=== PATIENT | male | born 1960 | race Caucasian/White ===

== ENCOUNTER 2016-10-11 10:04 | Day surgery (SDC) | payer BC, OTHER ==
[2016-10-11] MEDS ORDERED: PROPOFOL 10 MG/ML VIAL IV ONE (14:00)
[2016-10-11] MEDS ORDERED: LIDOCAINE 2% MDV (20MG/ML) 20ML VIAL IV ONE (14:00)
--- NOTE | 2016-10-13 12:43 | Operative Note ---
DATE OF SURGERY: 10/11/2016. REFERRING PHYSICIAN: Hu Decker M.D. PROCEDURE: Colonoscopy to the cecum with cold biopsy forceps polypectomy. INDICATION: Prior history of adenomatous polyps. The patient returns at this time for surveillance. ANESTHESIA: Intravenous sedation was administered by the Department of Anesthesiology and included Diprivan titrated to effect. PROCEDURE: Following informed consent from this alert individual, including a discussion of the risks and benefits of the procedure and an opportunity for the patient to ask questions, the patient was in the left lateral decubitus position. A digital rectal exam was performed. No abnormalities were noted. Following this, the Olympus PCF-180 video colonoscope was inserted into the rectum without resistance. The rectal mucosa has a normal appearance with normal folds and distensibility. In the sigmoid colon there were a few scattered diverticula and also a diminutive 2.0- to 3.0-mm polyp noted which was easily removed with application of cold biopsy forceps. The colonoscope was then further advanced up through bowel to the level of the cecum without difficulty. Throughout the remainder of the bowel, the mucosa appeared normal, folds were normal, and the bowel was fairly distensible. The cecum was well defined by noting the appendiceal orifice and cecal pouch. The colon preparation was good. Retroflexion in the cecum was endoscopically unremarkable. From the base of the cecum the colonoscope was then withdrawn. No additional abnormalities were detected. Retroflexion in the rectum was endoscopically normal. The endoscope was straightened and withdrawn. The patient tolerated the procedure well and was returned to the recovery area in stable condition. IMPRESSION: 1. A 2.0- to 3.0-mm sigmoid polyp removed with cold biopsy forceps. 2. Mild sigmoid diverticulosis. RECOMMENDATIONS: The patient was advised that he should receive a copy of his pathology report at home in the next two to three weeks. If not, he was asked to call my office to review the results of testing done today. Further recommendations will be forthcoming pending those results. Follow up will also be with Dr. Deckre. MANUELA FRAGA D.O. Date Time JOB NUMBER: [id number] cc: Hakan Nayak
== END 2016-10-11 11:00 | disposition home or self-care (01) ==
LOC: HOP 10:04
PROVIDERS: ATTEND Internal Medicine Gastroenterology
DX: Z09 Encounter for follow-up examination after completed treatment for conditions other than malignant neoplasm (principal); Z86.010 Personal history of colon polyps; K63.5 Polyp of colon; I10 Essential (primary) hypertension

== ENCOUNTER 2019-03-18 18:51 | Emergency (ER) | payer OTHER ==
--- NOTE | 2019-03-18 19:03 | Emergency Department Record ---
History of Present Illness - General Chief complaint: Extremity Problem Stated complaint: RT RING FINGER SMASHED Time Seen by Provider: 03/18/19 18:54 Source: Patient Mode of Arrival: Ambulatory Limitations: No limitations - History of Present Illness Initial comments: The patient injured his R 4th finger about three hours ago at home. He got it smashed between 2 rocks. There is a laceration to the finger pad. The patient denies any weakness or numbness. His Td is UTD. The patient is allergic to PCN but can take Keflex. MD Complaint: Extremity pain Onset/Timin -: Hour(s) - Related Data Previous Rx's Medication Instructions Recorded Cephalexin [Keflex] 500 mg PO QID #20 cap 03/18/19 Allergies Allergy/AdvReac Type Severity Reaction Status Date / Time Penicillins Allergy ANAPHYLAXIS Verified 03/18/19 18:59 Sulfa (Sulfonamide Allergy HIVES Verified 03/18/19 18:59 Antibiotics) Review of Systems Constitutional: Denies: Chills, Fever Past Medical History - SOCIAL HISTORY Smoking Status: Never smoker - RESPIRATORY Hx Respiratory Disorders: No - CARDIOVASCULAR Hx Cardio Disorders: Yes Hx Hypertension: Yes - NEURO Hx Neuro Disorders: No - GI Hx GI Disorders: No - Hx Genitourinary Disorders: No - ENDOCRINE Hx Endocrine Disorders: No - MUSCULOSKELETAL Hx Musculoskeletal Disorders: No - PSYCH Hx Psych Problems: No - HEMATOLOGY/ONCOLOGY Hx Hematology/Oncology Disorders: No Family Medical History *Cancer Comment: Maternal Aunt and Grandmother-Colon cancer Physical Exam - General General Appearance: Alert, Cooperative, No acute distress - Head Head exam: Atraumatic - Eye Eye exam: Normal appearance - Extremities Extremities exam: Full ROM, Normal capillary refill, Tenderness. negative: Normal inspection (There is a R 4th finger subungual hematoma with a total of 2 cm of lacerations over the finger pad. There is tenderness at the DIP joint of the R 4th finger with normal flexion and extension. ) Image of Finger Tip: 1 - 1.2 cm lac. 2 - .8 cm lac. - Neurological Neurological exam: Alert. negative: Motor sensory deficit Course Vital Signs 03/18/19 19:00 Temperature 98.4 F Pulse Rate [ 89 Pulse Ox Probe] Respiratory 20 Rate Blood Pressure 160/89 [Left Arm] Pulse Ox 97 - Reevaluation(s) Reevaluation #1: Procedure note: The R 4th finger was anesth. with 3 cc's Lido 1% using a digital block technique. The lac was lavaged with sterile saline and prepped with betadine. A total of 5 4.0 nylon sutures were placed in 2 different lacerations. A hole also was placed in the nail due to the subungual hematoma. There were no complications. 03/18/19 19:49 Medical Decision Making - Data Complexity MDM Data: X-Ray Ordered and/or Reviewed - Radiology Data Radiology results: Report reviewed (R 4th finger: Neg for fx.) Disposition Disposition: Discharge Clinical Impression: Laceration of finger Qualifiers: Encounter type: initial encounter Finger: ring finger Damage to nail status: without damage Foreign body presence: without foreign body Laterality: right Qualified Code(s): S61.214A - Laceration without foreign body of right ring finger without damage to nail, initial encounter Disposition: Home, Self-Care Condition: (2) Stable Instructions: Finger Laceration (ED) Additional Instructions: Please keep the finger clean and dry for 2 days then no soaking or swimming. Take the Keflex as directed for 5 days and return to the ER for any signs of infection. Have the sutures removed in 10 days. Prescriptions: Cephalexin [Keflex] 500 mg PO QID #20 cap Forms: Patient Portal Access Time of Disposition: 19:53 Quality - Quality Measures Quality Measures: N/A - Blood Pressure Screening View Details: Yes Does Patient Have Any of the Following: No Blood Pressure Classification: Pre-Hypertensive BP Reading Systolic Measurement: 160 Diastolic Measurement: 89 Screening for High Blood Pressure: < Pre-Hypertensive BP, F/U Documented > [[id number]] Pre-Hypertensive Follow-up Interventions: Referral to alternative/primary care provider.
[2019-03-18] MEDS ORDERED: CEPHALEXIN 500 MG CAPSULE PO STA (19:48)
--- NOTE | 2019-03-21 08:56 | RADIOLOGY REPORT ---
EXAMINATION: Right fingers. CLINICAL HISTORY: Trauma. TECHNIQUE: Three views of the right ring finger obtained. FINDINGS: There are posttraumatic changes of the soft tissues of the distal phalanx. There is no foreign body. No underlying fractures are seen. IMPRESSION: Soft tissue injury without fracture. MTDD
== END 2019-03-18 20:01 | disposition home or self-care (01) ==
LOC: ER 18:51
DX: S61.314A Laceration without foreign body of right ring finger with damage to nail, initial encounter (principal); S60.141A Contusion of right ring finger with damage to nail, initial encounter; W22.8XXA Striking against or struck by other objects, initial encounter; Y92.007 Garden or yard of unspecified non-institutional (private) residence as the place of occurrence of the external cause; I10 Essential (primary) hypertension
CPT/HCPCS: 11740; 12001; 73140; 99283; 99284